=== PATIENT | female | born 1975 | race Hispanic/Latino ===

== ENCOUNTER 2018-06-03 08:30 | Emergency (ER) | payer OTHER ==
[2018-06-03] MEDS ORDERED: ATIVAN ONE ×2 (09:08)
[2018-06-03] MEDS ORDERED: HALDOL ONE (09:08)
[2018-06-03] MEDS ORDERED: HALDOL IM PRN (09:11)
[2018-06-03] MEDS ORDERED: ATIVAN IM PRN (09:11)
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
[2018-06-03 09:34] LABS: Hematocrit 39.6 % (30.3-42.9); Mean Corpuscular HGB Conc 33 % (30-34); Mean Corpuscular Hemoglobin 29 pg (28-32); Mean Corpuscular Volume 87 fl (79-97); Platelet Count 245 K/mm3 (140-440); Red Blood Count 4.54 M/mm3 (3.65-5.03)
[2018-06-03 09:52] LABS: Alanine Aminotransferase 42 units/L (7-56); Albumin 3.5 g/dL (3.9-5); BUN/Creatinine Ratio 31; Blood Urea Nitrogen 28 mg/dL (7-17); Calcium 9.3 mg/dL (8.4-10.2); Hemolysis Index 7
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
[2018-06-03] MEDS ORDERED: NACL 0.9% 1000 ML 2,000 ML IV ONE (10:24)
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
[2018-06-03 10:46] LABS: INR 1.08 (0.87-1.13); Partial Thromboplastin Time 29.7 Sec. (24.2-36.6)
[2018-06-03 11:15] LABS: Bilirubin,Urine NEG (Negative); Blood,Urine NEG (Negative); Color,Urine Yellow (Yellow); Mucus,Urine FEW /HPF; Protein,Urine <15 mg/dL mg/dL (Negative); Urobilinogen,Urine < 2.0 mg/dL (<2.0)
[2018-06-03 11:22] LABS: Benzodiazepines Screen,Urine PRESUMPTIVE NEGATIVE; Cannabinoid Screen,Urine PRESUMPTIVE NEGATIVE; Cocaine Screen,Urine PRESUMPTIVE NEGATIVE; Methadone Screen,Urine PRESUMPTIVE NEGATIVE
[2018-06-03 11:35] LABS: Amphetamine Screen,Urine PRESUMPTIVE POSITIVE; Opiate Screen,Urine PRESUMPTIVE POSITIVE
[2018-06-03 12:15] LABS: Lipase 28 units/L (13-60)
[2018-06-03 15:13] VITALS: BP 105/59
== END 2018-06-03 22:01 ==
LOC: ED 08:30
DX: F15.10 Other stimulant abuse, uncomplicated (principal); F12.10 Cannabis abuse, uncomplicated; V89.2XXA Person injured in unspecified motor-vehicle accident, traffic, initial encounter; Y93.89 Activity, other specified; Y99.8 Other external cause status; Y92.410 Unspecified street and highway as the place of occurrence of the external cause
CPT/HCPCS: 36415; 70450; 71045; 72125; 74176; 80053; 80307; 81001; 82550; 83690; 83735; 84484; 85027; 85610; 85730; 93005; 93010; 96360; 96361; 96372; 99285; G0480; J1630; J2060; J7030; 80320